=== PATIENT | male | born 1965 | race Caucasian/White ===

== ENCOUNTER 2018-01-20 11:18 | Emergency (ER) | payer OTHER ==
[~2018-01-20] VITALS: Ht 185.4 cm; Wt 112.0 kg
[~2018-01-20 11:18] MED LIST: ACETAMINOPHEN325 M1 PO; ATIVAN1 MG PO; CEPHALEXIN 500500 M3 PO; CLONAZEPAM 0.50.5 M1 PO; DEPAKOTE ER500 M1 PO; DEPAKOTE500 MG PO; DIVALPROEX SOD500 MG PO; FINASTERIDE5 MG PO; HYDROCODONE-AP1 EAC6 PO; HYTRIN 5 M5 MG/1 CAP PO; IBUPROFEN 800800 MG PO; KEPPRA 500 MG500 MG; KEPPRA1000 MG PO; KLONIPIN; LAMICTAL 25 MG25 M1 PO; LAMICTAL 25 MG25 MG; LAMICTAL 25 MG25 MG PO; LAMICTAL XR100 MG PO; NAPROSYN500 MG PO; OMEPRAZOLE40 MG PO; ONFI; PROZAC 20 MG20 MG PO; RISPERDAL 1 MG T1 MG PO; SLOW-MAG64 MG PO; TOPAMAX50 MG; VIMPAT100 MG PO; ZONEGRAN100 MG; ZONEGRAN50 MG PO; [UNRECOGNIZED DRUG - REMARK]
[2018-01-20 12:00] LABS: ABSOLUTE BASOPHILS 0.1 thou/uL (0.0-0.2); ABSOLUTE EOSINOPHILS 0.2 thou/uL (0.0-0.7); ABSOLUTE MONOCYTES 0.6 thou/uL (0.0-1.2); ABSOLUTE NEUTROPHILS 2.8 thou/uL (1.6-8.1); BASOPHILS 1.2 %; EOSINOPHILS 3.7 %; HEMATOCRIT 39.1 % (42.0-52.0); HEMOGLOBIN 13.4 gm/dL (14.0-18.0); LYMPHOCYTES 35.6 %; MCH 32.4 pg (26.0-34.0); MCHC 34.3 g/dL (28.0-37.0); MCV 94.6 fL (80.0-100.0); MONOCYTES 10.6 %; NUCLEATED RBCS 0 /100WBC; PLATELET COUNT* 147 thou/uL (150-400); POLYS 48.9 %; RBC 4.13 mil/uL (4.50-6.00); RDW-CV 14.3 % (10.5-14.5); WBC 5.7 thou/uL (4.0-11.0)
[2018-01-20 12:07] LABS: ANION GAP 7 mmol/L (7-16); BUN 17 mg/dL (7-18); CALCIUM 8.5 mg/dL (8.5-10.1); CHLORIDE 105 mmol/L (98-107); CO2 28 mmol/L (21-32); CREATININE 1.1 mg/dL (0.6-1.3); GLUCOSE 118 mg/dL (70-99); POTASSIUM 3.8 mmol/L (3.5-5.1); SODIUM 140 mmol/L (136-145)
[2018-01-20] MEDS ORDERED: FLOMAX0.4 MG PO (12:07)
[2018-01-20] MEDS ORDERED: FINASTERIDE5 MG PO (12:07)
[2018-01-20] MEDS ORDERED: FLUOXETINE HCL40 MG PO (12:07)
[2018-01-20 12:13] LABS: ALCOHOL < 10 mg/dL (<10)
[2018-01-20 12:15] LABS: ALBUMIN 3.4 g/dL (3.4-5.0); ALKALINE PHOSPHATASE 59 U/L (46-116); SGOT 21 U/L (15-37); SGPT 38 U/L (30-65); TOTAL BILIRUBIN 0.2 mg/dL (<0.1-1.0); TROPONIN-I LEVEL <0.06 ng/mL (<0.06)
[2018-01-20 12:50] LABS: URINE BLOOD NEGATIVE (Negative); URINE CLARITY CLEAR; URINE COLOR DARK YELLOW; URINE GLUCOSE-RANDOM NEGATIVE (Negative); URINE KETONES 1+ (Negative); URINE LEUKOCYTES-REFLEX NEGATIVE (Negative); URINE NITRITE-REFLEX NEGATIVE (Negative); URINE PROTEIN NEGATIVE (Negative); URINE SPECIFIC GRAVITY 1.025 (1.005-1.030); URINE UROBILINOGEN 0.2 E.U./dl (0.2-1.0)
[2018-01-20 12:52] LABS: VALPROIC ACID (DEPAKENE) 56.2 mcg/mL (50-100)
[2018-01-20 12:52] LABS: ICTOTEST (BILI CONFIRMATORY) Negative (Negative); URINE BILIRUBIN 1+ (Negative)
[2018-01-20 12:58] LABS: AMP/METHAMP Negative (Negative); BARBITURATES Negative (Negative); BENZODIAZEPINES Negative (Negative); COCAINE Negative (Negative); METHADONE Negative (Negative); OPIATES Negative (Negative); PCP Negative (Negative); THC Negative (Negative)
[2018-01-20] MEDS ORDERED: NORCO 5-325 TA1 EACH PO (13:34)
[2018-01-20] MEDS ORDERED: CYCLOBENZAPRINE5 MG PO (13:34)
[2018-01-20] MEDS ORDERED: IBUPROFEN 800800 MG PO (13:34)
[2018-01-20 13:45] VITALS: BP 137/91
--- NOTE | 2018-01-20 14:53 | EKG ---
[place] [address] ELECTROCARDIOGRAM REPORT Name: MARY ARAGON JR Room: [facility]#: [id number] Admission: 01/20/18 Attend Phys: Discharge: 01/20/18 Date of : 67 Report #: [id number] THIS REPORT FOR: //name// [facility] ED Test Date: 2018-01-20 Test Time: 11:49:13 Pat Name: MARYFRANCIS LERNERTNER Department: Room: Gender: M Supervisor Dock: Ronit GALAN : 1965 Requested By: Yamel Gotti Order Number: [id number] MD: Galen Damian Measurements Intervals [place] Rate: 64 P: 24 NV: 170 QRS: 17 QRSD: 94 T: -13 QT: 406 QTc: 419 Interpretive Statements Sinus rhythm Borderline T abnormalities, inferior leads Compared to ECG 06/07/2015 16:42:25 T-wave abnormality now present Electronically Signed On 01-20-2018 14:52:53 CDT by Galen Damian [email or web address] <ELECTRONICALLY SIGNED> By: Galen Damian MD, [facility] 01/20/18 1452 1149 1149 Galen Damian MD, FAC /EPI
== END 2018-01-20 13:46 | disposition home or self-care (01) ==
LOC: M.ERS 11:18
PROVIDERS: Personal Emergency Response Attendant
DX: S13.9XXA Sprain of joints and ligaments of unspecified parts of neck, initial encounter (principal); G43.909 Migraine, unspecified, not intractable, without status migrainosus; Z85.038 Personal history of other malignant neoplasm of large intestine; N40.0 Benign prostatic hyperplasia without lower urinary tract symptoms; Z88.2 Allergy status to sulfonamides; Z88.0 Allergy status to penicillin; Z88.5 Allergy status to narcotic agent; V49.9XXA Car occupant (driver) (passenger) injured in unspecified traffic accident, initial encounter; Y93.89 Activity, other specified; Y92.89 Other specified places as the place of occurrence of the external cause; Y99.8 Other external cause status

== ENCOUNTER 2018-03-02 14:03 | Emergency (ER) | payer OTHER ==
[~2018-03-02] VITALS: Ht 182.9 cm; Wt 115.6 kg
[~2018-03-02 14:03] MED LIST changes: +CYCLOBENZAPRINE5 MG PO; +FLOMAX0.4 MG PO; +FLUOXETINE HCL40 MG PO; +NORCO 5-325 TA1 EACH PO
[2018-03-02] MEDS ORDERED: DEPAKOTE ER500 MG PO (14:13)
[2018-03-02] MEDS ORDERED: NITROSTAT0.4 M1 SUBLING (14:14)
[2018-03-02 14:33] LABS: APTT 20.5 Seconds (25.0-31.3); PROTIME 9.8 Seconds (9.20-11.50)
[2018-03-02 14:42] LABS: ANION GAP 11 mmol/L (7-16); BUN 13 mg/dL (7-18); CALCIUM 8.7 mg/dL (8.5-10.1); CHLORIDE 103 mmol/L (98-107); CO2 25 mmol/L (21-32); CREATININE 1.1 mg/dL (0.6-1.3); GLUCOSE 107 mg/dL (70-99); POTASSIUM 3.8 mmol/L (3.5-5.1); SODIUM 139 mmol/L (136-145)
[2018-03-02 14:46] LABS: HEMATOCRIT 40.1 % (42.0-52.0); HEMOGLOBIN 13.4 gm/dL (14.0-18.0); MCH 32.4 pg (26.0-34.0); MCHC 33.5 g/dL (28.0-37.0); MCV 96.7 fL (80.0-100.0); MPV 10.5 fl. (7.2-11.1); NUCLEATED RBCS 0 /100WBC; PLATELET COUNT* 149 thou/uL (150-400); RBC 4.14 mil/uL (4.50-6.00); WBC 7.9 thou/uL (4.0-11.0)
[2018-03-02 14:53] LABS: ALBUMIN 3.6 g/dL (3.4-5.0); ALKALINE PHOSPHATASE 50 U/L (46-116); CK-MB MASS 0.6 ng/mL (<0.5-3.6); NT-PRO BRAIN NAT PEPTIDE 24 pg/mL (<300); SGOT 13 U/L (15-37); SGPT 24 U/L (30-65); TOTAL BILIRUBIN 0.3 mg/dL (<0.1-1.0); TOTAL PROTEIN 7.3 g/dL (6.4-8.2); TROPONIN-I LEVEL <0.06 ng/mL (<0.06)
[2018-03-02 15:04] LABS: SALICYLATE < 2.8 mg/dL (2.8-20.0)
[2018-03-02 15:06] LABS: ACETAMINOPHEN < 2 ug/mL (10-30); ALCOHOL < 10 mg/dL (<10)
[2018-03-02 15:07] LABS: ABSOLUTE EOSINOPHILS 0.2 thou/uL (0.0-0.7); ABSOLUTE MONOCYTES 0.9 thou/uL (0.0-1.2); ABSOLUTE NEUTROPHILS 4.8 thou/uL (1.6-8.1)
[2018-03-02 15:08] LABS: PLATELET ESTIMATE ADEQUATE
[2018-03-02 15:16] LABS: URINE BLOOD NEGATIVE (Negative); URINE CLARITY CLEAR; URINE COLOR YELLOW; URINE GLUCOSE-RANDOM NEGATIVE (Negative); URINE KETONES NEGATIVE (Negative); URINE LEUKOCYTES-REFLEX NEGATIVE (Negative); URINE NITRITE-REFLEX NEGATIVE (Negative); URINE PROTEIN NEGATIVE (Negative); URINE SPECIFIC GRAVITY >= 1.030 (1.005-1.030); URINE UROBILINOGEN 0.2 E.U./dl (0.2-1.0)
[2018-03-02 15:19] LABS: ICTOTEST (BILI CONFIRMATORY) Negative (Negative); URINE BILIRUBIN 1+ (Negative)
[2018-03-02 15:23] LABS: AMP/METHAMP Negative (Negative); BARBITURATES Negative (Negative); BENZODIAZEPINES Negative (Negative); COCAINE Negative (Negative); METHADONE Negative (Negative); OPIATES Negative (Negative); PCP Negative (Negative); THC Negative (Negative)
[2018-03-02 15:32] VITALS: BP 110/70
--- NOTE | 2018-03-03 14:09 | EKG ---
[place] [address] ELECTROCARDIOGRAM REPORT Name: MARY ARAGON JR Room: [facility]#: [id number] Admission: 03/02/18 Attend Phys: Discharge: 03/02/18 Date of : 67 Report #: [id number] THIS REPORT FOR: //name// [facility] ED Test Date: 2018-03-02 Test Time: 14:06:54 Pat Name: MARY ARAGON Department: Room: Gender: M Ambulance Mechanic: Ronit HENDRICKS : 1965 Requested By: Bahman Man Order Number: [id number] MD: Galen Damian Measurements Intervals [place] Rate: 80 P: 25 MN: 154 QRS: 17 QRSD: 91 T: -20 QT: 375 QTc: 433 Interpretive Statements Sinus rhythm Borderline repolarization abnormality Compared to ECG 01/20/2018 11:49:13 T-wave abnormality no longer present Electronically Signed On 03-03-2018 14:09:09 CDT by Galen Damian [email or web address] <ELECTRONICALLY SIGNED> By: Galen Damian MD, [facility] 03/03/18 1409 05 05 Galen Damian MD, [facility] /EPI
== END 2018-03-02 15:33 | disposition home or self-care (01) ==
LOC: M.ERS 14:03
PROVIDERS: Family Medicine
DX: R41.82 Altered mental status, unspecified (principal); G43.909 Migraine, unspecified, not intractable, without status migrainosus; N40.0 Benign prostatic hyperplasia without lower urinary tract symptoms; F17.210 Nicotine dependence, cigarettes, uncomplicated; Z85.038 Personal history of other malignant neoplasm of large intestine; Z88.5 Allergy status to narcotic agent; Z88.0 Allergy status to penicillin; Z88.2 Allergy status to sulfonamides

== ENCOUNTER 2018-09-28 17:42 | Emergency (ER) | payer OTHER ==
[~2018-09-28] VITALS: Ht 182.9 cm; Wt 110.7 kg
[~2018-09-28 17:42] MED LIST changes: +DEPAKOTE ER500 MG PO; +NITROSTAT0.4 M1 SUBLING; +TERAZOSIN HCL5 MG PO
[2018-09-28] MEDS ORDERED: PROPRANOLOL 1010 MG PO (17:50)
[2018-09-28] MEDS ORDERED: NORCO 5-325 TA1 EACH PO (18:24)
[2018-09-28 18:42] VITALS: BP 122/79
== END 2018-09-28 18:43 | disposition home or self-care (01) ==
LOC: M.ERS 17:42
DX: M25.511 Pain in right shoulder (principal); G43.909 Migraine, unspecified, not intractable, without status migrainosus; N40.0 Benign prostatic hyperplasia without lower urinary tract symptoms; F17.210 Nicotine dependence, cigarettes, uncomplicated; Z88.0 Allergy status to penicillin; Z88.2 Allergy status to sulfonamides; Z88.5 Allergy status to narcotic agent; Z85.038 Personal history of other malignant neoplasm of large intestine

== ENCOUNTER 2018-10-13 10:41 | Observation (INO) | payer OTHER ==
[2018-10-02 09:13] LABS: ABSOLUTE BASOPHILS 0.1 thou/uL (0.0-0.2); ABSOLUTE EOSINOPHILS 0.3 thou/uL (0.0-0.7); ABSOLUTE LYMPHOCYTES 1.5 thou/uL (0.8-5.3); ABSOLUTE MONOCYTES 0.4 thou/uL (0.0-1.2); ABSOLUTE NEUTROPHILS 2.8 thou/uL (1.6-8.1); BASOPHILS 1.3 %; EOSINOPHILS 6.6 %; LYMPHOCYTES 29.1 %; MCH 31.4 pg (26.0-34.0); MCHC 34.2 g/dL (28.0-37.0); MONOCYTES 8.7 %; MPV 9.9 fl. (7.2-11.1); NUCLEATED RBCS 0 /100WBC; PLATELET COUNT* 156 thou/uL (150-400); POLYS 54.3 %; RBC 4.46 mil/uL (4.50-6.00); RDW-CV 14.5 % (10.5-14.5); WBC 5.1 thou/uL (4.0-11.0)
[2018-10-02 09:24] LABS: ALBUMIN 3.4 g/dL (3.4-5.0); APTT 25.7 Seconds (25.0-31.3); CALCIUM 9.3 mg/dL (8.5-10.1); CREATININE 1.2 mg/dL (0.6-1.3); POTASSIUM 3.8 mmol/L (3.5-5.1); PROTIME 9.9 Seconds (9.20-11.50); TOTAL BILIRUBIN 0.1 mg/dL (<0.1-1.0); TOTAL PROTEIN 7.3 g/dL (6.4-8.2)
[2018-10-02 10:35] LABS: ESR (SEDRATE) 4 mm/hr (0-20)
--- NOTE | 2018-10-02 11:02 | EKG ---
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
[2018-10-02 19:08] LABS: GLYCOHEMOGLOBIN (HGB A1C) 5.6 % (4.8-5.6)
[~2018-10-13] VITALS: Ht 182.9 cm; Wt 110.7 kg
[~2018-10-13 10:41] MED LIST changes: +PROPRANOLOL 1010 MG PO
[2018-10-13 11:57] VITALS: BP 132/80
--- NOTE | 2018-10-13 16:30 | NUR ---
RECIEVED O.T. EVAL AND TX ORDERS. WILL DEFER TO P.T. AND NURSING AT THIS TIME. PLEASE ORDER FURTHER O.T. SERVICES IF NEEDED.
--- NOTE | 2018-10-13 17:34 | NUR ---
PATIENT ARRIVED TO UNIT AT 1605. ALERT AND ORIENTED X4. IV IS PATENT AND SALINE LOCKED. REQUESTING PAIN MEDICATION UPON ARRIVAL TO UNIT. DENIES NAUESEA. BECKY HOSE IN PLACE. CAP-NO IN PLACE. VSS ON 2L O2. PATIENT HAS BEEN ORIENTED TO ROOM. CALL LIGHT IS WITHIN REACH. NURSING WILL CONTINUE TO MONITOR.
--- NOTE | 2018-10-13 19:31 | NUR ---
ALERT AND ORIENTED X4. IV IS PATENT AND INFUSING. PAIN BEING MANAGED WITH PO AND IV PAIN MEDICATION. DENIES NAUSEA. TOLERATING DIET. BECKY HOSE IN PLACE. CAP-NO IN PLACE. MEPILEX DRESSING IS C/D/I. VSS ON 2L O2. CALL LIGHT IS WITHIN REACH. HOURLY ROUNDS HAVE BEEN MAINTAINED SINCE ARRIVING ON UNIT. NURSING WILL CONTINUE TO MONITOR.
[2018-10-13 20:00] VITALS: BP 109/72
[2018-10-14] VITALS: BP 111/70
[2018-10-14 04:00] VITALS: BP 107/64
[2018-10-14 04:12] LABS: HEMATOCRIT 37.6 % (42.0-52.0); HEMOGLOBIN 12.5 gm/dL (14.0-18.0)
--- NOTE | 2018-10-14 05:08 | NUR ---
PT A&Ox4. VITALS STABLE. OX 94% ON 2LO2. MEPILEX CLEAN, DRY AND INTACT. BILATERAL THIGH HIGH TEDS AND SCDs IN PLACE. IV IN L HAND PATENT, INFUSING. CAPNO WAS GOING OFF VERY FREQUENTLY, DISTURBING PT SLEEP. GOT CPAP ORDERED, IN PLACE. PAIN CONTROLLED. CALL LIGHT WITHIN REACH. HOURLY ROUNDING COMPLETE. FALL PRECAUTIONS IN PLACE. WILL CONTINUE TO MONITOR.
[2018-10-14 08:12] VITALS: BP 114/62
[2018-10-14] MEDS ORDERED: METAMUCIL1 EAC1 PO (10:13)
[2018-10-14] MEDS ORDERED: TRAMADOL 50 MG50 MG PO (10:14)
[2018-10-14] MEDS ORDERED: OXYCODONE HCL 55 MG PO (10:15)
[2018-10-14] MEDS ORDERED: ELIQUIS2.5 MG PO (10:15)
[2018-10-14 10:16] VITALS: BP 116/62
[2018-10-14] MEDS ORDERED: ASPIRIN325 PO (10:16)
--- NOTE | 2018-10-14 14:15 | NUR ---
SPOKE TO THE PATIENT TO DISCUSS HOME SITAUTION, DISCHARGE PLANNING, AND TO INFORM OF THE ROLE OF CM. PATIENT ALERT AND ORIENTED. PATIENT RESIDES AT HOME WITH SPOUSE. PATIENT OWNS NO DME AND WILL NEED A WALKER AT D/C. PATIENT HAS NO HH OR SNF HX AND PLANS TO RETURN HOME AT D/C AND HAVE OUTPATIENT P.T. AT [facility] IN [place], [place]. D/C CELL TUBER MACHINE SPOKE TO [facility] TO INFORM OF PATIENTS ORDER FOR P.T., AND FAXED PATIENT'S FACESHEET, H&P, AND D/C ORDERS. D/C CELL TUBER MACHINE ALSO SPOKE TO REENA WITH PROVIDER MANDY TO INFORM OF THE NEED TO CHECK PATIENT'S BENEFITS FOR A WALKER. REENA RETURNED CALL TO INFORM THAT THE PATIENT IS APPROVED FOR A WALKER. D/C CELL TUBER MACHINE INFORMED P.T. THAT IT IS OK TO DISPENSE A WALKER FOR THE PATIENT. RN IN-CHARGE OF THE PATIENT CALLED IN THE PATIENT'S ELIQUIS. D/C CELL TUBER MACHINE SPOKE TO THE PHARMACIST AT [facility] AND SHE INFORMS THAT THE PATIENT'S CO-PAY AMOUNT FOR THE ELIQUIS IS $3.89. D/C CELL TUBER MACHINE INFORMED THE PATIENT AND RN OF THE PATIENT'S CO-PAY AMOUNT, AND BOTH ARE IN AGREEMENT. PATIENT TO D/C HOME TODAY WITH TRANSPORTATION PROVIDED BY HIS . CM WILL REMAIN AVAILABLE TO ASSIST AND FOLLOW NEEDED.
--- NOTE | 2018-10-14 17:05 | NUR ---
PATIENT DISCHARGED TO HOME AT THIS TIME. IV REMOVED. PAIN MEDS PRIOR TO DC. SCRIPTS GIVEN FOR OXYIR AND TRAMADOL. KELVIN CALLED INTO PATIENTS PHARMACY. WALKER DISPENSED. PATIENT VERBALIZED UNDERSTANDING OF DC INSTRUCTIONS. DISCHARGED WITH .
--- NOTE | 2018-10-15 07:35 | OP ---
[address] [address] OPERATIVE REPORT Name: MARY ARAGON JR Room: [address] Doc#: [id number] Admission: 10/13/18 Attend Phys: Mariam Rosales Discharge: 10/14/18 Date of : 67 Report #: [id number] THIS REPORT FOR: //name// CC: Joshua Currie DATE OF SERVICE: 10/13/2018 PREOPERATIVE DIAGNOSIS: Advanced degenerative joint disease of the left knee. POSTOPERATIVE DIAGNOSIS: Advanced degenerative joint disease of the left knee. PROCEDURE: Left unicompartmental knee arthroplasty. SURGEON: Jose A Ramirez DO MILLINERY BLOCKER: Rafal DO. ANESTHESIA: General LMA with an adductor block. COMPLICATIONS: None. ANTIBIOTICS: He received 1 gram of TXA preop and 1 gram of vancomycin powder, intraop. ESTIMATED BLOOD LOSS: 75 mL. TOURNIQUET TIME INDICATIONS: Roughly 60 minutes at 295 mmHg pressure. IMPLANTS: Biomet [place] unicompartmental knee system with a twin pegged femoral component, size medium; a left medial tibial tray, size; a medium size 3 mm thick anatomic meniscal bearing and one bag of Palacos cement. INDICATIONS FOR SURGERY: The patient is a 53-year-old male who has had longstanding severe left knee pain. It has affected his everyday life. It has affected his quality of life. 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 He has trouble sleeping at night. He is walking with antalgic gait. He is starting to get a significant varus deformity to his knee. X-rays show near [id number] apposition of the medial joint space with no evidence of patellofemoral arthritic changes at this time other than osteophytic lipping. Lateral joint appears to be benign. Risks, complications of the unicompartmental knee arthroplasty versus total knee arthroplasty as well as risks, complication of the actual surgery been discussed in detail with the patient and his who is well versed with this as [place] [address] OPERATIVE REPORT Name: MAHESHMARY JR Room: [address]#: [id number] Admission: 10/13/18 Attend Phys: Mariam Rosales Discharge: 10/14/18 Date of : 67 Report #: [id number] All questions are answered. A signed informed consent has been attached to chart, may refer to. His knee is marked preoperatively for timeout technique. DESCRIPTION OF PROCEDURE: The patient was taken to the operating room and placed on the operating table in supine position. Following general LMA anesthetic, the left leg was prepped and draped in usual sterile fashion with tourniquet in the proximal left thigh and the leg in the unicompartmental knee urrutia. All pressure points well padded. I outlined the incision was made with a marking pen. Time-out technique was utilized to verify appropriate surgical site, procedure, concerns, allergies, etc. A midline arthrotomy incision was performed. The incision was carried through skin and subcutaneous tissue down to the joint capsule along the medial side of the patella. The capsule was then incised in line with the incision. The medial joint was evaluated. There was eburnated bone to the medial femoral condyle. There was osteophytic lipping to the medial femoral condyle and medial tibia. The small amount of fat in the intracapsular was removed for better visualization. The lateral joint was evaluated. There was absolutely no evidence of any chondrosis or problems to the lateral side. No meniscal tears noted. The ACL was intact. A decision to proceed with the unicompartmental knee was made. All osteophytic bone was removed with a rongeur and small osteotome. The patella osteophytes were removed at this time as well. Intercondylar notch osteophytes removed. The external tibial guide was applied and aligned in all planes. This was pinned into place roughly 2-3 mm lower than the lowest point on the tibia. The appropriate slope and alignment was checked in all planes, pinned into place. The oscillating saw was used for the sagittal cut just medial to the attachment of the ACL. The reciprocating saw was then utilized for the bony wafer of the proximal medial tibia plateau. The bone was removed. The meniscal structures were removed as well. The trial tibial tray was placed and the 3 mm and 4 mm spacer was then inserted and at 110 degrees they both fit well, 3 mm fit better than the 4 mm. Therefore, appropriate resection was performed. Attention then turned to the femur. The femoral drill hole was made for the intramedullary canal. The guide was inserted into this hole tapped into place. The outline of the femoral condyle was made with an indelible marking pen and the femoral drill hole guide was then applied, aligned in all planes and drilled with the step drill, a small drill on top and large drill in the middle. The guide was then removed. The posterior condylar cutting block was then applied and the posterior condyles resected. Cutting block was removed. A cut bone was removed. Next, the zero spigot was placed into the knee. The intramedullary guide was removed. The reamer was then utilized on the medial femoral condyle. A trial reduction was then performed after thoroughly irrigating the knee. The 3 spacer fit well and flexion at 110 degrees. Nothing fit in extension; therefore, a 3 mm spigot was utilized. The steps were repeated. The knee was checked once again and once again a size 3 fit in flexion, but nothing fit in extension. Therefore, a 6 spigot was then placed and repeat reaming was performed. This gave excellent balance in both flexion and extension. Therefore, the osteophytes and excess bone removed. [place] [address] OPERATIVE REPORT Name: MARY ARAGON JR Room: [address] [facility].#: [id number] Admission: 10/13/18 Attend Phys: Mariam Rosales Discharge: 10/14/18 Date of : 67 Report #: [id number] out throughout the incision. The Unicorn posterior condylar checking block was then inserted and the posterior condyle showed no evidence of osteophyte. The anterior aspect of the knee was then reamed to remove the anterior flange of femur, so not to impinge on the final prosthesis. The Unicorn guide was removed and thorough irrigation was carried out throughout the incision. The tibial tray was placed, held in correct position. The bone nail was placed to secure this and the toothbrush saw was then utilized to prepare the tibia for the final finned tibial tray. A trial reduction was then performed with the tibial trial with a fin as well as the femur. The size 3 spacer gave excellent range of motion throughout the entire arc of motion. Range of motion was easily 0-130 degrees or better. No tendency towards dislocation noted. All trial components were removed. Final components were placed on the back table. The cement drill was utilized to prepare the femur and tibia for better interdigitation. Copious irrigation carried out throughout the incision. The incision was thoroughly dried. One bag of Palacos cement was mixed. Cement was placed on to the final components and then placed on the tibia with the use of the plastic spatula. The cement was pressurized into the tibia. The final tibial tray was then impacted firmly into place. All excess cement was removed sharply with a [place]. The posterior aspect of the tibia was checked repetitively with a headlight source. Then, attention was turned to the femur as pressurize cement placed on to the drill holes and the medial femoral condyle. The final femoral component was impacted firmly into place. All excess cement was removed sharply. A trial of the 3 mm spacer was then placed. This was the appropriate size for the final. Therefore, the final 3 mm spacer was obtained. Posterior capsule of the knee was injected with the anesthetic solution. The final spacer was placed in the knee. The knee was held at 45 degrees of flexion with pressurization across the knee until complete cement hardening occurred. During this time, the tourniquet was deflated. Hemostasis was achieved with use of electrocautery and direct pressure. The knee was then closed with a #1 Quill in running fashion to the arthrotomy incision and the capsule. The skin was reapproximated with 2-0 Monocryl subcutaneous sutures followed by running 3-0 subcuticular Stratafix suture. Skin was closed with Dermabond glue and a Mepilex dressing was applied. Thigh high BECKY hose was applied. The patient tolerated the procedure well and was taken to recovery in stable condition. No complications encountered. Final instrument counts and sponge counts correct x 2. <ELECTRONICALLY SIGNED> By: James Lang DO 10/15/18 0735 1646 [id number] Marcela Ramirez DO /nt
== END 2018-10-14 17:00 | disposition home or self-care (01) ==
LOC: M.SUR 10:41 → M.ORTHSURG 14:44 → M.TBA 14:44 → M.SUR 14:54 → M.ORTHSURG 16:10 → M.SUR 17:52 → M.ORTHSURG 10-14 17:00
PROVIDERS: Orthopaedic Surgery; ADMIT Internal Medicine
DX: M17.12 Unilateral primary osteoarthritis, left knee (principal); K21.9 Gastro-esophageal reflux disease without esophagitis; F31.9 Bipolar disorder, unspecified; G47.33 Obstructive sleep apnea (adult) (pediatric); C18.9 Malignant neoplasm of colon, unspecified; R56.9 Unspecified convulsions; S06.9X0A Unspecified intracranial injury without loss of consciousness, initial encounter; X58.XXXA Exposure to other specified factors, initial encounter; Y93.89 Activity, other specified; Y92.89 Other specified places as the place of occurrence of the external cause; Y99.8 Other external cause status; Z79.899 Other long term (current) drug therapy

== ENCOUNTER → 2018-10-17 | Outpatient (CLI) | payer OTHER ==
[~2018-10-17] MED LIST changes: +ASPIRIN325 PO; +ELIQUIS2.5 MG PO; +METAMUCIL1 EAC1 PO; +OXYCODONE HCL 55 MG PO; +TRAMADOL 50 MG50 MG PO
== END ==
LOC: M.ULTRA 15:30
DX: M79.89 Other specified soft tissue disorders (principal); M79.605 Pain in left leg

== ENCOUNTER 2019-10-31 22:22 | Emergency (ER) | payer MEDICARE ==
[~2019-10-31] VITALS: Ht 182.9 cm; Wt 115.7 kg
[2019-10-31 22:58] LABS: URINE BILIRUBIN NEGATIVE (Negative); URINE BLOOD NEGATIVE (Negative); URINE CLARITY CLEAR; URINE COLOR YELLOW; URINE GLUCOSE-RANDOM NEGATIVE (Negative); URINE KETONES TRACE (Negative); URINE LEUKOCYTES-REFLEX NEGATIVE (Negative); URINE NITRITE-REFLEX NEGATIVE (Negative); URINE PROTEIN NEGATIVE (Negative); URINE SPECIFIC GRAVITY >= 1.030 (1.005-1.030); URINE UROBILINOGEN 0.2 E.U./dl (0.2-1.0)
[2019-10-31 23:06] LABS: ABSOLUTE BASOPHILS 0.1 thou/uL (0.0-0.2); ABSOLUTE EOSINOPHILS 0.4 thou/uL (0.0-0.7); ABSOLUTE LYMPHOCYTES 2.7 thou/uL (0.8-5.3); ABSOLUTE MONOCYTES 0.7 thou/uL (0.0-1.2); ABSOLUTE NEUTROPHILS 2.9 thou/uL (1.6-8.1); BASOPHILS 1.2 %; EOSINOPHILS 6.3 %; HEMATOCRIT 34.5 % (42.0-52.0); HEMOGLOBIN 12.1 gm/dL (14.0-18.0); LYMPHOCYTES 39.1 %; MCV 91.4 fL (80.0-100.0); MPV 9.3 fl. (7.2-11.1); NUCLEATED RBCS 0 /100WBC; PLATELET COUNT* 166 thou/uL (150-400); POLYS 42.4 %; RBC 3.77 mil/uL (4.50-6.00); RDW-CV 15.3 % (10.5-14.5); WBC 6.8 thou/uL (4.0-11.0)
[2019-10-31 23:15] LABS: CALCIUM 7.7 mg/dL (8.5-10.1); CREATININE 1.1 mg/dL (0.6-1.3)
[2019-10-31 23:20] LABS: ALBUMIN 3.1 g/dL (3.4-5.0); TOTAL BILIRUBIN 0.3 mg/dL (<0.1-1.0)
[2019-11-01 00:11] LABS: TOTAL PROTEIN 5.9 g/dL (6.4-8.2)
[2019-11-01] MEDS ORDERED: ZOFRAN ODT4 MG DISSOLVE (00:57)
[2019-11-01] MEDS ORDERED: NORCO 5-325 TA1 EAC1 PO (00:57)
[2019-11-01 01:14] VITALS: BP 105/51
--- NOTE | 2019-11-02 09:56 | EKG ---
[place] [address] ELECTROCARDIOGRAM REPORT Name: MARY ARAGON JR Room: [facility]#: [id number] Admission: 10/31/19 Attend Phys: Discharge: 11/01/19 Date of : 67 Report #: [id number] THIS REPORT FOR: //name// [facility] ED Test Date: 2019-10-31 Test Time: 23:15:44 Pat Name: MARY ARAGON Department: Room: Gender: M Telehealth Nurse Educator: [place] : 1965 Requested By: Aniceto Ritchie Order Number: [id number] MD: Darell Lobo Measurements Intervals [place] Rate: 59 P: 26 WI: 175 QRS: 13 QRSD: 96 T: -20 QT: 450 QTc: 446 Interpretive Statements Sinus rhythm Borderline T abnormalities, inferior leads Baseline wander in lead(s) V2 Compared to ECG 10/02/2018 09:16:05 no change Electronically Signed On 11-02-2019 9:56:07 INTERSTATE BUS DRIVER by Darell Lobo [email or web address] <ELECTRONICALLY SIGNED> By: Darell Lobo MD, [facility] 11/02/19 0956 2315 2315 Darell Lobo MD, [facility] /EPI
--- NOTE | 2019-11-02 15:10 | EKG ---
[place] [address] ELECTROCARDIOGRAM REPORT Name: MARY ARAGON JR Room: [facility].#: [id number] Admission: 10/31/19 Attend Phys: Discharge: 11/01/19 Date of : 67 Report #: [id number] THIS REPORT FOR: //name// 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: [place] : 1965 Requested By: Aniceto Ritchie Order Number: [id number] Hanna MD: Darell Lobo Measurements Intervals [place] Rate: 59 P: 26 NM: 175 QRS: 13 QRSD: 96 T: -20 QT: 450 QTc: 446 Interpretive Statements Sinus rhythm Borderline T abnormalities, inferior leads Baseline wander in lead(s) V2 Compared to ECG 10/02/2018 09:16:05 no change Electronically Signed On 11-02-2019 15:09:53 FARM EQUIPMENT ENGINEER by Darell Lobo [email or web address] <ELECTRONICALLY SIGNED> By: Darell Lobo MD, [facility] 11/02/19 1509 2315 2315 Darell Lobo MD, FACC /EPI
== END 2019-11-01 01:15 | disposition home or self-care (01) ==
LOC: M.ERS 22:22
PROVIDERS: Emergency Medicine Emergency Medical Services
DX: R10.84 Generalized abdominal pain (principal); R19.7 Diarrhea, unspecified; G43.909 Migraine, unspecified, not intractable, without status migrainosus; K21.9 Gastro-esophageal reflux disease without esophagitis; N40.0 Benign prostatic hyperplasia without lower urinary tract symptoms; F17.210 Nicotine dependence, cigarettes, uncomplicated; Z88.0 Allergy status to penicillin; Z88.2 Allergy status to sulfonamides; Z88.5 Allergy status to narcotic agent; Z85.038 Personal history of other malignant neoplasm of large intestine

== ENCOUNTER 2019-12-27 12:54 | Observation (INO) | payer MEDICARE ==
[~2019-12-27] VITALS: Ht 182.9 cm; Wt 111.4 kg
[~2019-12-27 12:54] MED LIST changes: +NORCO 5-325 TA1 EAC1 PO; +ZOFRAN ODT4 MG DISSOLVE
[2019-12-27 12:55] VITALS: BP 110/53
[2019-12-27 13:33] LABS: ABSOLUTE EOSINOPHILS 0.2 thou/uL (0.0-0.7); ABSOLUTE MONOCYTES 0.4 thou/uL (0.0-1.2); BASOPHILS 0.8 %; HEMATOCRIT 34.5 % (42.0-52.0); HEMOGLOBIN 11.9 gm/dL (14.0-18.0); LYMPHOCYTES 43.3 %; MCHC 34.3 g/dL (28.0-37.0); MCV 90.3 fL (80.0-100.0); MPV 9.6 fl. (7.2-11.1); NUCLEATED RBCS 0 /100WBC; PLATELET COUNT* 161 thou/uL (150-400); POLYS 42.9 %; RBC 3.82 mil/uL (4.50-6.00); RDW-CV 14.3 % (10.5-14.5); WBC 4.7 thou/uL (4.0-11.0)
[2019-12-27 13:43] LABS: CALCIUM 8.2 mg/dL (8.5-10.1); POTASSIUM 4.1 mmol/L (3.5-5.1)
[2019-12-27 13:45] LABS: APTT 24.8 Seconds (25.0-31.3); INR 1.1; PROTIME 10.9 Seconds (9.20-11.50)
[2019-12-27 13:57] LABS: ALBUMIN 3.4 g/dL (3.4-5.0); CK-MB MASS 1.5 ng/mL (<0.5-3.6); MAGNESIUM 1.8 mg/dL (1.8-2.4); TOTAL BILIRUBIN 0.2 mg/dL (<0.1-1.0)
[2019-12-27 16:13] VITALS: BP 104/71
[2019-12-27 16:34] VITALS: BP 106/78
[2019-12-27] MEDS ORDERED: FENOFIBRATE160 MG PO (16:56)
[2019-12-27] MEDS ORDERED: TOPAMAX100 MG PO (17:34)
[2019-12-27 20:00] VITALS: BP 112/73
[2019-12-27 23:42] VITALS: BP 107/74
[2019-12-28 03:43] LABS: ABSOLUTE EOSINOPHILS 0.2 thou/uL (0.0-0.7); ABSOLUTE LYMPHOCYTES 2.2 thou/uL (0.8-5.3); ABSOLUTE MONOCYTES 0.6 thou/uL (0.0-1.2); ABSOLUTE NEUTROPHILS 1.9 thou/uL (1.6-8.1); BASOPHILS 0.7 %; EOSINOPHILS 4.7 %; HEMATOCRIT 37.3 % (42.0-52.0); HEMOGLOBIN 12.6 gm/dL (14.0-18.0); LYMPHOCYTES 44.8 %; MCH 30.6 pg (26.0-34.0); MCHC 33.7 g/dL (28.0-37.0); MCV 90.8 fL (80.0-100.0); NUCLEATED RBCS 0 /100WBC; PLATELET COUNT* 159 thou/uL (150-400); POLYS 37.8 %; RDW-CV 14.8 % (10.5-14.5); WBC 4.9 thou/uL (4.0-11.0)
[2019-12-28 04:00] VITALS: BP 108/63
[2019-12-28 04:05] LABS: CALCIUM 8.2 mg/dL (8.5-10.1); CREATININE 0.9 mg/dL (0.6-1.3); POTASSIUM 4.2 mmol/L (3.5-5.1)
[2019-12-28 08:11] VITALS: BP 109/70
--- NOTE | 2019-12-28 10:25 | EKG ---
[place] [address] ELECTROCARDIOGRAM REPORT Name: MARY ARAGON JR Room: [address] M.R.#: [id number] Admission: 12/27/19 Attend Phys: Jason Long, Discharge: Date of : 67 Date of Service: 12/27/19 1256 Report #: [id number] THIS REPORT FOR: //name// [facility] ED Test Date: 2019-12-27 Test Time: 12:56:42 Pat Name: MARY ARAGON Department: Room: [facility] Gender: M All Round Butcher: : 1965 Requested By: Bahman Man Order Number: [id number] MD: Darell Lobo Measurements Intervals [place] Rate: 78 P: 25 [place]: 167 QRS: 28 QRSD: 96 T: -33 QT: 360 QTc: 411 Interpretive Statements Sinus rhythm Borderline repolarization abnormality Compared to ECG 10/31/2019 23:15:44 no change Electronically Signed On 12-28-2019 10:24:56 ROUND UP RING HAND by Darell Lobo [email or web address] <ELECTRONICALLY SIGNED> By: Darell Lobo MD, FACC 12/28/19 1024 1256 1256 Darell Lobo MD, FAC /EPI
--- NOTE | 2019-12-28 12:19 | CON ---
[address] [address] CONSULTATION Name: MARY ARAGON JR Room: [address] Yahir Roach#: [id number] Admission: 12/27/19 Attend Phys: Jason Long MD Discharge: Date of : 67 Report #: [id number] THIS REPORT FOR: //name// cc: PANFILO - Family physician unknown FAM - Family physician unknown ~ THIS REPORT FOR: //name// CC: Jason BENJAMIN unknown DATE OF SERVICE: 12/28/2019 CARDIOLOGY CONSULTATION HISTORY OF PRESENT ILLNESS: The patient is a 54-year-old white male who I was asked to see in the hospital today after he complained of chest pain. The patient has had several hospitalizations here at [place] in the past. He was actually admitted here in 2012 after he had an episode of seizure. He has a history of bipolar disorder. He was actually admitted here in 2014 with recurrent seizure. He was admitted here in 2018, undergoing knee surgery. He notes about 2 years ago, he was having chest pain and was admitted to [place]. He had a stress test, sent home. His results apparently came back abnormal. He was then brought back to [place] as an outpatient, had a heart catheterization from the right radial artery. No significant coronary artery disease is noted. He has done well since that time, works out on a regular basis. He was doing well until yesterday, he was at work when he felt lightheaded and diaphoretic, felt some sharp chest pain. He felt nauseated. He felt his heart skipping. EMS was called. He was brought from work here to [facility] and admitted. I was asked to see him for further evaluation and treatment. He denies any recent fever, cough, blood in stool. Denied trauma to his chest. He does have occasional dyspnea on exertion, edema. He has had palpitations, but no syncope. PAST MEDICAL HISTORY: Otherwise, he has had previous knee surgery, colon resection for colon cancer. He has a history of hyperlipidemia, bipolar disorder, seizure disorder. No history of hypertension or hyperlipidemia. MEDICATIONS: On admission included Flomax, Prozac, Hytrin, fenofibrate, Topamax, Lamictal, Risperdal, Depakote, Proscar, omeprazole. ALLERGIES: HE HAS INTOLERANCE TO PENICILLIN AND CODEINE. FAMILY HISTORY: His brother had stents. SOCIAL HISTORY: He is . He and his live in [place] [address] CONSULTATION Name: MARY ARAGON Room: [address] M.R.#: [id number] Admission: 12/27/19 Attend Phys: Jason Long MD Discharge: Date of : 67 Report #: [id number] pack of cigarettes a day. No alcohol abuse. 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 REVIEW OF SYSTEMS: He has had no history of stroke. He does have sleep apnea, uses CPAP. No history of peptic ulcer disease, liver disease, kidney disease, chronic skin condition. PHYSICAL EXAMINATION: GENERAL: A middle-aged male lying in bed. He appeared in no distress. VITAL SIGNS: He had a blood pressure of 110/60, pulse 60. He is afebrile. HEENT: He was anicteric. Conjunctivae pink. Mucous membranes are moist. NECK: Veins nondistended. No carotid bruits. CHEST: Clear to auscultation. CARDIOVASCULAR: Regular rate and rhythm, no murmur. ABDOMEN: Soft. EXTREMITIES: Had no edema. Posterior tibial pulse 2+ bilaterally. SKIN: Warm, dry. NEUROLOGIC: Nonfocal. DIAGNOSTIC DATA: His ECG on admission showed a sinus rhythm, nonspecific ST and T-wave change. His workup, he had a chest x-ray in the Emergency Room yesterday that showed no acute abnormality. He had a CT scan of the head after feeling lightheaded that showed no acute abnormality. LABORATORY WORK: Sodium 137, creatinine 0.9. Liver function studies were normal. Troponins all 0.06. His white blood cell count was 4.9, hematocrit 37.3. IMPRESSION AND RECOMMENDATIONS: 1. Chest pain. Atypical for angina. Noted to have abnormal ECG. Cardiac catheterization apparently 2 years ago showed no significant coronary artery disease. I would recommend a stress echo. 2. History of colon cancer. 3. Hypertriglyceridemia. The patient is on fenofibrate. 4. Tobacco abuse. 5. Bipolar disorder. 6. History of seizures. 7. History of colon cancer. <ELECTRONICALLY SIGNED> By: Darell Lobo MD, [facility] 12/28/19 1219 0811 [id number] Lobo MD, FAC /nt
[2019-12-28 12:37] VITALS: BP 109/70
[2019-12-28 12:39] VITALS: BP 129/76
--- NOTE | 2019-12-28 15:44 | EXE ---
[place] [address] STRESS ECHOCARDIOGRAM Name: MARY ARAGON JR Room: [address] Doc#: [id number] Admission: 12/27/19 Attend Phys: Jason Long, Discharge: Date of : 67 Date of Service: 12/28/19 1543 Report #: [id number] THIS REPORT FOR: cc: FAM - Family physician unknown FAM - Family physician unknown Darell Lobo MD [facility] ~ ADDENDUM APPROVED REPORT Study performed: 12/28/2019 13:08:01 Exam: Stress Echocardiogram Indication: Chest pain , Dyspnea Patient Location: In-Patient Stress Nurse: Jennifer Langley RN Room #: 209 Supervising Physician: Darell Lobo MD Status: routine Ht: 6 ft 0 in HR: 57 bpm BP: 113/60 mmHg Rhythm: NSR Medical History Medications: Hydralazine, Terazosin Allergies: PCN, Sulfa, Codeine Cardiac Risk Factors: Hyperlipidemia, age, Smoking, FHX of CAD Procedure The patient underwent an Exercise Stress Test using the Joshua Protocol. Blood pressure, heart rate, and EKG were monitored. An Echocardiogram was performed by network technician in four stages in quad fashion. At peak stress, four selected images were obtained and placed side by side with resting images for comparison. Echo Enhancing Agent Indication: Endocardial border delineation Agent(s) / Amount(s) Used: Optison 8 cc Stress Test Details Stress Test: Exercise stress testing was performed using a Joshua protocol. HR Resting HR: 57 bpm Max Heart Rate (APMHR): 167 [place] [address] STRESS ECHOCARDIOGRAM Name: MARY ARAGON JR Room: [address]#: [id number] Admission: 12/27/19 Attend Phys: Jason Long, Discharge: Date of : 67 Date of Service: 12/28/19 1543 Report #: [id number] Max HR Achieved: 150 bpm Target HR (85% APMHR): 141 bpm % of APMHR: 89 Recovery HR: 86 bpm HR response to stress: Normal HR response to stress BP Resting BP: 113/60 mmHg Max BP: 150/51 mmHg Recovery BP: 103/56 mmHg BP response to stress: Normal blood pressure response to stress. ECG Resting ECG: Sinus Rhythm, nonspecific ST-T abnormalities Stress ECG: Sinus Rhythm, nonspecific ST-T abnormalities ST Change: Downsloping ST depression Maximum ST Deviation: 1 mm Arrhythmia: None Recovery ECG: Sinus Rhythm, nonspecific ST-T abnormalities Recovery ST Change: Downsloping ST depression Recovery ST Deviation: 0.5 mm Recovery Arrhythmia: None Clinical Reason for Termination: Completed protocol Exercise duration: 5 min 30 sec Highest Stage Achieved: Stage 2: 2.5 mph at 12% grade. Exercise capacity: 7.05 METs Pre-Stress Echo The resting Echocardiogram showed normal left ventricular contractility with an estimated Ejection Fraction of about 60-65%. Post-Stress Echo The stress Echocardiogram showed normal left ventricular contractility with an estimated Ejection Fraction of about >70%. Compared to rest, there were no stress-induced wall motion abnormalities. Conclusion Clinical Response: Non-ischemic Exercise Capacity: Below Average Stress ECG Response: Indeterminant Stress Echo Images: Non-ischemic low risk stress echo for [place] [address] STRESS ECHOCARDIOGRAM Name: MARY ARAGON JR Room: [address]#: [id number] Admission: 12/27/19 Attend Phys: Jason Long, Discharge: Date of : 67 Date of Service: 12/28/19 1543 Report #: [id number] Other Information Technically limited study due to body habitus. <Conclusion> low risk stress echo for prediciting future cardiac events <ELECTRONICALLY SIGNED> By: Darell Lobo MD, [facility] 12/28/19 1543 154 1543 Darell Lobo MD, FACC /INF
[2019-12-28 17:01] VITALS: BP 112/64
== END 2019-12-28 18:17 | disposition home or self-care (01) ==
LOC: M.ERS 12:54 → M.2W 14:17 → M.TBA-ER 14:17 → M.2W 14:17
PROVIDERS: Family Medicine; ADMIT Internal Medicine
DX: R07.89 Other chest pain (principal); K21.9 Gastro-esophageal reflux disease without esophagitis; F17.210 Nicotine dependence, cigarettes, uncomplicated; R55 Syncope and collapse; G40.909 Epilepsy, unspecified, not intractable, without status epilepticus

== ENCOUNTER 2020-01-21 16:50 | Observation (INO) | payer MEDICARE ==
[~2020-01-21] VITALS: Ht 182.9 cm; Wt 113.4 kg
[~2020-01-21 16:50] MED LIST changes: +FENOFIBRATE160 MG PO; +TOPAMAX100 MG PO
[2020-01-21 16:51] VITALS: BP 117/58
--- NOTE | 2020-01-21 17:54 | NUR ---
PT CALLED. ASKED "ARE WE DOING THE SWAB". STATES THE COMPLAINTS THAT THE GAVE ARE NOT ACCURATE AND SHE KNOWS HIM AND WHAT HIS SYMPTOMS ARE. SHE REPORTS HE HAD CHILLS, LOVELACE, LIKE AN ELEPHANT ON HIS CHEST, AND SOA. AND IF SOMETHING HAPPENS TO HER SHE WILL DANIA US ALL. WAS REASSURED THAT THE DR WOULD DO A FULL EXAMINATION OF THE PT AND ALL APPROPRIATE TEST WOULD BE ORDERED.
[2020-01-21 18:02] LABS: ABSOLUTE BASOPHILS 0.1 thou/uL (0.0-0.2); ABSOLUTE EOSINOPHILS 0.2 thou/uL (0.0-0.7); ABSOLUTE LYMPHOCYTES 1.7 thou/uL (0.8-5.3); ABSOLUTE MONOCYTES 0.6 thou/uL (0.0-1.2); ABSOLUTE NEUTROPHILS 2.7 thou/uL (1.6-8.1); BASOPHILS 1.3 %; EOSINOPHILS 3.8 %; HEMATOCRIT 34.8 % (42.0-52.0); HEMOGLOBIN 11.9 gm/dL (14.0-18.0); LYMPHOCYTES 32.2 %; MCH 31.2 pg (26.0-34.0); MCHC 34.1 g/dL (28.0-37.0); MCV 91.3 fL (80.0-100.0); MONOCYTES 11.2 %; MPV 9.1 fl. (7.2-11.1); NUCLEATED RBCS 0 /100WBC; PLATELET COUNT* 188 thou/uL (150-400); POLYS 51.5 %; RBC 3.81 mil/uL (4.50-6.00); RDW-CV 15.2 % (10.5-14.5); WBC 5.2 thou/uL (4.0-11.0)
[2020-01-21 18:12] LABS: CALCIUM 8.3 mg/dL (8.5-10.1); CREATININE 1.1 mg/dL (0.6-1.3); POTASSIUM 4.2 mmol/L (3.5-5.1)
[2020-01-21 18:13] LABS: PROTIME 10.5 Seconds (9.20-11.50)
[2020-01-21 18:23] LABS: ALBUMIN 3.4 g/dL (3.4-5.0); TOTAL BILIRUBIN 0.2 mg/dL (<0.1-1.0)
[2020-01-21 20:00] VITALS: BP 119/76
[2020-01-21 20:02] VITALS: BP 128/71
[2020-01-21] MEDS ORDERED: NITROGLYCERIN0.4 MG SUBLING (22:58)
[2020-01-22] VITALS: BP 104/63
[2020-01-22 04:00] VITALS: BP 104/62
[2020-01-22 04:24] LABS: HEMATOCRIT 36.7 % (42.0-52.0); HEMOGLOBIN 12.5 gm/dL (14.0-18.0); MCH 31.1 pg (26.0-34.0); MCHC 33.9 g/dL (28.0-37.0); MCV 91.8 fL (80.0-100.0); MPV 9.9 fl. (7.2-11.1); RDW-CV 15.2 % (10.5-14.5)
[2020-01-22 04:58] LABS: CALCIUM 8.9 mg/dL (8.5-10.1); CREATININE 1.2 mg/dL (0.6-1.3); POTASSIUM 4.4 mmol/L (3.5-5.1)
--- NOTE | 2020-01-22 07:49 | NUR ---
RECEIVED PT FROM ED PER CART AT APPROX 1940. PT IS AWAKE AND ORIENTED X4. PIPE WASHER PLACED AND IS TRACING SB. ADMISSION ASSESSMENTS DONE AND CHARTED. PT IS ADVISED TO HAVE NOTHING BY MOUTH AFTER MIDNIGHT FOR CARDIOLOGY. PT IS ADVISED ONB THE USE OF CALL LIGHT. FALL PRECAUTIONS IN PLACE. HOURLY ROUNDING DONE FOR PT SAFETY.
[2020-01-22 08:00] VITALS: BP 99/68
--- NOTE | 2020-01-22 09:53 | EKG ---
[place] [address] ELECTROCARDIOGRAM REPORT Name: MARY ARAGON JR Room: [address] M.R.#: [id number] Admission: 01/21/20 Attend Phys: Daniel barber Sa Discharge: Date of : 67 Date of Service: 01/21/20 1654 Report #: [id number] THIS REPORT FOR: //name// [facility] ED Test Date: 2020-01-21 Test Time: 16:54:04 Pat Name: MARY ARAGON Department: Room: 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 01/22/20 0951 1654 1654 Darell Lobo MD, [facility] /EPI
--- NOTE | 2020-01-22 10:03 | EKG ---
[place] [address] ELECTROCARDIOGRAM REPORT Name: MARY ARAGON JR Room: [address] M.R.#: [id number] Admission: 01/21/20 Attend Phys: Daniel barber Sa Discharge: Date of : 67 Date of Service: 01/22/20 0836 Report #: [id number] THIS REPORT FOR: //name// [facility] Test Date: 2020-01-22 Test Time: 08:36:45 Pat Name: MARY LERNERTNER Department: Room: [address] Gender: M Qa Tech: : 1965 Requested By: Daniel Lantigua Order Number: [id number] Hanna MD: Darell Lobo Measurements Intervals [place] Rate: 56 P: 11 TX: 167 QRS: 23 QRSD: 98 T: -1 QT: 424 QTc: 410 Interpretive Statements Sinus rhythm Borderline T wave abnormalities Electronically Signed On 01-22-2020 10:02:35 CDT by Darell Lobo [email or web address] <ELECTRONICALLY SIGNED> By: Darell Lobo MD, [facility] 01/22/20 1002 5 Darell Lobo MD, [facility] /EPI
[2020-01-22 11:00] VITALS: BP 104/62
--- NOTE | 2020-01-22 14:00 | NUR ---
ASSUMED PT CARE AT 0730. ASSESSMENT COMPLETED CHARTED. ABLE TO MAKE NEEDS KNOWN. NO C/O PAIN OR DISCOMFORT. UP SBA DUE TO HX SEIZURES. DISCHARGE APPROVED. DISCHARGE PACKET DISCUSSED WITH PT. NO COMMENTS, QUESTIONS OR CONCERNS NOTED. IV AND HEART MONITOR REMOVED. AT FRONT DOOR TO TAKE PT HOME AT AROUND 1335. TOOK PT WITH ALL BELONGINGS IN WHEELCHAIR AT THAT TIME.
--- NOTE | 2020-01-22 14:14 | CON ---
[address] [address] CONSULTATION Name: MARY ARAGON JR Room: [address] Yahir Roach#: [id number] Admission: 01/21/20 Attend Phys: Daniel Sparrow Discharge: 01/22/20 Date of : 67 Report #: [id number] THIS REPORT FOR: //name// cc: Joshua Garcia Bruce R. DO THIS REPORT FOR: //name// CC: Joshua Lantigua DATE OF SERVICE: 01/22/2020 CARDIOLOGY CONSULT HISTORY OF PRESENT ILLNESS: The patient is a 54-year-old white male who I was asked to see in the hospital today after complained of being dizzy. The patient has a long history of chest pain. He actually had a heart catheterization at [facility] 2 years ago that showed no significant coronary artery disease. He was then admitted here to [facility] a month ago with chest pain. The pain was felt to be atypical for angina. He underwent a stress echocardiogram that showed no evidence of ischemia. He was discharged. He was then doing well until yesterday, he was shopping when he suddenly felt a sharp pain in his chest, became short of breath and lightheaded. Paramedics were called. He was brought here to [facility] and admitted. I was asked to see him for further evaluation and treatment. He denies recent fever or cough. He notes occasional fast heartbeat, but no syncope. He denied any bleeding. PAST MEDICAL HISTORY: He has had knee surgery, colon resection for colon cancer, hyperlipidemia, bipolar disorder, seizure disorder. No history of hypertension, hyperlipidemia. MEDICATIONS: Include Flomax, Prozac, Hytrin, fenofibrate, Topamax, Lamictal, risperidone, Depakote, Proscar, omeprazole. ALLERGIES: HE HAS A PREVIOUS INTOLERANCE TO PENICILLIN, CODEINE. FAMILY HISTORY: His brother had a stent. SOCIAL HISTORY: He is . He and his live in [place]. He smokes half pack of cigarettes a day. No alcohol abuse. 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 REVIEW OF SYSTEMS: No history of stroke. He has a sleep apnea, uses CPAP. No history of peptic ulcer disease, liver disease, kidney disease, [place] [address] CONSULTATION Name: MAHESHMARY CHURCH JR Room: [address]#: [id number] Admission: 01/21/20 Attend Phys: Daniel Sparrow Discharge: 01/22/20 Date of : 67 Report #: [id number] PHYSICAL EXAMINATION: GENERAL: A middle-aged male, appeared in no distress. VITAL SIGNS: He had a blood pressure of 110/60s, pulse of 60s, afebrile. HEENT: He was anicteric. Conjunctivae are pink. Mucous membranes moist. NECK: Veins nondistended. No carotid bruits. CHEST: Clear to auscultation. CARDIOVASCULAR: Regular rate and rhythm. ABDOMEN: Soft. EXTREMITIES: Had no edema. SKIN: Cool and dry. NEUROLOGIC: Nonfocal. RADIOLOGICAL DATA: His ECG on admission showed a sinus rhythm, nonspecific T-wave changes. His workup in the Emergency Room yesterday, he had a portable chest x-ray that showed normal heart size, clear lung salazar. He actually had a CT scan of the head a month ago because of lightheadedness that was unremarkable. LABORATORY WORK: He had lab work yesterday, sodium 140, creatinine 1.2. Liver function studies were normal. Troponins all 0.06. His white blood cell count was 6.0, hematocrit 36.7. IMPRESSION AND RECOMMENDATIONS: 1. Chest pain. Atypical for angina. The patient had a heart catheterization 2 years ago and stress test 1 month ago that showed no ischemia. I suspect his chest pain is noncardiac. Recommend no further cardiac evaluation at this time. 2. Dizziness. I would recommend he avoid dehydration. 3. History of colon cancer. 4. Hypertriglyceridemia. The patient on fenofibrate. 5. Tobacco abuse. 6. Bipolar disorder. 7. History of seizures. <ELECTRONICALLY SIGNED> By: Darell Lobo MD, [facility] 01/22/20 1414 0844 [id number] Lobo MD, FAC /nt
== END 2020-01-22 13:41 | disposition home or self-care (01) ==
LOC: M.ERS 16:50 → M.TBA-ER 17:48 → M.2W 17:48 → M.TBA-ER 17:48 → M.2W 22:44
PROVIDERS: Personal Emergency Response Attendant; ADMIT Family Medicine
DX: R07.89 Other chest pain (principal); N40.0 Benign prostatic hyperplasia without lower urinary tract symptoms; K21.9 Gastro-esophageal reflux disease without esophagitis

== ENCOUNTER → 2020-03-30 | Outpatient (CLI) | payer MEDICARE ==
[~2020-03-30] MED LIST changes: +NITROGLYCERIN0.4 MG SUBLING
--- NOTE | ~2020-03-30 | EEG ---
[address] [address] EEG STUDY REPORT Name: MARY ARAGON JR Room: [facility] Doc#: [id number] Admission: 03/30/20 Attend Phys: Mariely Tellez, Discharge: Date of : 67 Report #: [id number] THIS REPORT FOR: //name// CC: Joshua Tellez DATE OF SERVICE: 03/30/2020 The patient is being evaluated for the possibility of seizure. EEG was done by placing the electrode by standard 10-20 system of electrode placement. Both referential and sequential montages were used for recording. Background activity in this patient's EEG is about 10-11 Hz and 30 microvolt. It is a symmetrical activity. The patient went to sleep that is associated with bilateral slowing and vertex sharp waves. Photic stimulation is unremarkable. Throughout the record, no active epileptiform activity was noticed. IMPRESSION: This patient's EEG does not demonstrate any clear-cut epileptiform activity. Thank you very much for this referral. By: [id number] Bradford MD /nt
== END ==
LOC: M.CRD 13:11
DX: G40.219 Localization-related (focal) (partial) symptomatic epilepsy and epileptic syndromes with complex partial seizures, intractable, without status epilepticus (principal)

== ENCOUNTER 2020-08-13 23:08 | Emergency (ER) | payer MEDICARE ==
[~2020-08-13] VITALS: Ht 182.9 cm; Wt 114.3 kg
[2020-08-13 23:45] LABS: ABSOLUTE BASOPHILS 0.1 thou/uL (0.0-0.2); ABSOLUTE EOSINOPHILS 0.3 thou/uL (0.0-0.7); ABSOLUTE LYMPHOCYTES 1.9 thou/uL (0.8-5.3); ABSOLUTE MONOCYTES 0.5 thou/uL (0.0-1.2); ABSOLUTE NEUTROPHILS 3.5 thou/uL (1.6-8.1); BASOPHILS 1.4 %; EOSINOPHILS 5.3 %; HEMATOCRIT 35.7 % (42.0-52.0); HEMOGLOBIN 12.1 gm/dL (14.0-18.0); LYMPHOCYTES 29.3 %; MCH 31.5 pg (26.0-34.0); MCV 92.8 fL (80.0-100.0); MONOCYTES 8.6 %; MPV 9.1 fl. (7.2-11.1); NUCLEATED RBCS 0 /100WBC; PLATELET COUNT* 203 thou/uL (150-400); POLYS 55.4 %; RBC 3.84 mil/uL (4.50-6.00); RDW-CV 14.5 % (10.5-14.5); WBC 6.4 thou/uL (4.0-11.0)
[2020-08-13 23:54] LABS: CALCIUM 8.9 mg/dL (8.5-10.1); CREATININE 1.3 mg/dL (0.6-1.3); PROTIME 10.6 Seconds (9.20-11.50)
[2020-08-13 23:58] LABS: ALBUMIN 4.2 g/dL (3.4-5.0); TOTAL BILIRUBIN 0.2 mg/dL (<0.1-1.0); TOTAL PROTEIN 7.7 g/dL (6.4-8.2)
[2020-08-14 00:18] VITALS: BP 118/68
--- NOTE | 2020-08-14 10:03 | EKG ---
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: [place] : 1965 Requested By: Yamel Gotti Order Number: [id number] MD: Darell Lobo Measurements Intervals [place] Rate: 72 P: 44 PA: 166 QRS: 33 QRSD: 99 T: -43 QT: 411 QTc: 450 Interpretive Statements ectopic atrial rhythm Borderline repolarization abnormality Baseline wander in lead(s) II,III,aVR,aVL,aVF Compared to ECG 01/22/2020 08:36:45 ectopic atrial rhythm now noted Electronically Signed On 08-14-2020 10:02:56 CDT by Darell Lobo [email or web address] <ELECTRONICALLY SIGNED> By: Darell Lobo MD, FACC 08/14/20 1002 09 231 Darell Lobo MD, FACC /EPI
== END 2020-08-14 00:18 | disposition home or self-care (01) ==
LOC: M.ERS 23:08
PROVIDERS: Personal Emergency Response Attendant
DX: R56.9 Unspecified convulsions (principal); N40.0 Benign prostatic hyperplasia without lower urinary tract symptoms; K21.9 Gastro-esophageal reflux disease without esophagitis; F17.210 Nicotine dependence, cigarettes, uncomplicated; Z88.2 Allergy status to sulfonamides; Z88.0 Allergy status to penicillin; Z88.5 Allergy status to narcotic agent; Z85.038 Personal history of other malignant neoplasm of large intestine

== ENCOUNTER 2021-12-04 00:33 | Emergency (ER) | payer MEDICARE ==
[~2021-12-04] VITALS: Ht 182.9 cm; Wt 108.9 kg
[2021-12-04] MEDS ORDERED: HYDROCODON-ACE1 EAC7 PO (01:22)
[2021-12-04] MEDS ORDERED: NORFLEX100 MG PO (01:22)
[2021-12-04] MEDS ORDERED: MEDROLDOSEPACK PO (01:31)
[2021-12-04 02:00] VITALS: BP 132/69
== END 2021-12-04 02:00 | disposition home or self-care (01) ==
LOC: M.ERS 00:33
DX: M43.6 Torticollis (principal); K21.9 Gastro-esophageal reflux disease without esophagitis; F17.210 Nicotine dependence, cigarettes, uncomplicated; Z79.899 Other long term (current) drug therapy; Z88.0 Allergy status to penicillin; Z88.2 Allergy status to sulfonamides; Z88.5 Allergy status to narcotic agent